=== PATIENT | male | born 1950 | race Caucasian/White ===

== ENCOUNTER → 2024-01-08 08:47 | Outpatient (REF) | payer MEDICARE, OTHER, SELFPAY ==
[2024-01-08 10:32] LABS: ALT (SGPT) 50 U/L (0-50); AST (SGOT) 42 U/L (17-59); Albumin 4.8 g/dl (3.5-5.0); Alkaline Phosphatase 83 U/L (38-126); Blood Urea Nitrogen 29 mg/dl (9-20); Calcium 10.5 mg/dl (8.4-10.2); Carbon Dioxide 31 mmol/L (22-30); Chloride 100 mmol/L (98-107); Glucose 87 mg/dl (70-99); HDL Cholesterol 95 mg/dl; LDL Cholesterol, Calculated 51 mg/dl; Potassium 4.5 mmol/L (3.5-5.1); Sodium 140 mmol/L (135-145); Total Bilirubin 0.5 mg/dl (0.2-1.3); Total Cholesterol 165 mg/dl (50-199); Total Protein 7.7 g/dl (6.3-8.2); Triglyceride 98 mg/dl (10-149); Very Low Density Lipoprotein 19 mg/dl (0-30); eGFR > 60.00
[2024-01-08 12:03] LABS: Glycohemoglobin (HgbA1c) 6.1 % (4.0-5.6)
== END ==
LOC: REG 08:47
PROVIDERS: ATTENDING PHYSICIAN Family Medicine
DX: N40.1 Benign prostatic hyperplasia with lower urinary tract symptoms (principal); E78.2 Mixed hyperlipidemia; R73.01 Impaired fasting glucose
CPT/HCPCS: 36415; 80053; 80061; 83036

== ENCOUNTER → 2024-06-30 09:31 | Outpatient (REF) | payer MEDICARE, OTHER, SELFPAY ==
[2024-06-30 10:55] LABS: Glycohemoglobin (HgbA1c) 5.7 % (4.0-5.6)
[2024-06-30 11:24] LABS: ALT (SGPT) 41 U/L (0-50); AST (SGOT) 42 U/L (17-59); Albumin 4.8 g/dl (3.5-5.0); Alkaline Phosphatase 79 U/L (38-126); Blood Urea Nitrogen 22 mg/dl (9-20); Calcium 10.4 mg/dl (8.4-10.2); Carbon Dioxide 29 mmol/L (22-30); Chloride 101 mmol/L (98-107); Glucose 97 mg/dl (70-99); HDL Cholesterol 99 mg/dl; LDL Cholesterol, Calculated 57 mg/dl; Potassium 5.1 mmol/L (3.5-5.1); Sodium 142 mmol/L (135-145); Total Bilirubin 0.5 mg/dl (0.2-1.3); Total Cholesterol 169 mg/dl (50-199); Total Protein 7.2 g/dl (6.3-8.2); Triglyceride 65 mg/dl (10-149); Very Low Density Lipoprotein 13 mg/dl (0-30); eGFR > 60.00
[2024-06-30 11:50] LABS: Intact PTH 55.8 pg/ml (13.6-85.8)
== END ==
LOC: REG 09:31
PROVIDERS: ATTENDING PHYSICIAN Family Medicine
DX: R73.01 Impaired fasting glucose (principal); E78.2 Mixed hyperlipidemia; Z12.5 Encounter for screening for malignant neoplasm of prostate; E83.52 Hypercalcemia
CPT/HCPCS: 36415; 80053; 80061; 83036; 83970; G0103

== ENCOUNTER → 2024-12-17 09:05 | Outpatient (REF) | payer MEDICARE, OTHER, SELFPAY ==
[2024-12-17 10:07] LABS: Ionized Calcium 1.26 mMOL/L (1.15-1.33)
[2024-12-17 10:32] LABS: ALT (SGPT) 44 U/L (0-50); AST (SGOT) 42 U/L (17-59); Albumin 4.5 g/dl (3.5-5.0); Alkaline Phosphatase 87 U/L (38-126); Blood Urea Nitrogen 27 mg/dl (9-20); Calcium 10.5 mg/dl (8.4-10.2); Carbon Dioxide 31 mmol/L (22-30); Chloride 102 mmol/L (98-107); Glucose 97 mg/dl (70-99); HDL Cholesterol 94 mg/dl; LDL Cholesterol, Calculated 66 mg/dl; Potassium 4.9 mmol/L (3.5-5.1); Sodium 140 mmol/L (135-145); Total Bilirubin 0.6 mg/dl (0.2-1.3); Total Cholesterol 174 mg/dl (50-199); Total Protein 7.5 g/dl (6.3-8.2); Triglyceride 73 mg/dl (10-149); Very Low Density Lipoprotein 14 mg/dl (0-30); eGFR > 60.00
[2024-12-17 10:50] LABS: Glycohemoglobin (HgbA1c) 5.8 % (4.0-5.6)
== END ==
LOC: REG 09:05
PROVIDERS: ATTENDING PHYSICIAN Family Medicine
DX: E78.2 Mixed hyperlipidemia (principal); R73.01 Impaired fasting glucose; E83.52 Hypercalcemia
CPT/HCPCS: 36415; 80053; 80061; 82330; 83036

== ENCOUNTER → 2025-08-02 09:04 | Outpatient (REF) | payer MEDICARE, OTHER, SELFPAY ==
[2025-08-02 11:19] LABS: Glycohemoglobin (HgbA1c) 5.9 % (4.0-5.6)
[2025-08-02 11:23] LABS: ALT (SGPT) 41 U/L (0-50); AST (SGOT) 43 U/L (17-59); Albumin 4.8 g/dl (3.5-5.0); Alkaline Phosphatase 79 U/L (38-126); Blood Urea Nitrogen 19 mg/dl (9-20); Calcium 9.9 mg/dl (8.4-10.2); Carbon Dioxide 32 mmol/L (22-30); Chloride 104 mmol/L (98-107); Glucose 95 mg/dl (70-99); HDL Cholesterol 96 mg/dl; LDL Cholesterol, Calculated 50 mg/dl; Potassium 4.4 mmol/L (3.5-5.1); Sodium 139 mmol/L (135-145); Total Protein 7.8 g/dl (6.3-8.2); Very Low Density Lipoprotein 22 mg/dl (0-30); eGFR > 60.00
[2025-08-02 11:49] LABS: PSA, Total - Screen 1.89 ng/ml (0.0-4.0)
== END ==
LOC: REG 09:04
PROVIDERS: ATTENDING PHYSICIAN Family Medicine
DX: E83.52 Hypercalcemia (principal); E78.2 Mixed hyperlipidemia; R73.01 Impaired fasting glucose; Z12.5 Encounter for screening for malignant neoplasm of prostate
CPT/HCPCS: 36415; 80053; 80061; 83036; 83970; G0103